=== PATIENT | female | born 2000 | race Caucasian/White ===

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

== ENCOUNTER → 2021-07-07 13:17 | Outpatient (CLI) | payer BC, SELFPAY | PROVIDERS: PCP Registered Nurse Diabetes Educator; Visit Provider Nurse Practitioner Family | DX: R30.0 Dysuria (principal) | CPT/HCPCS: 87077; 87086; 87186 ==

== ENCOUNTER → 2021-07-13 15:49 | Outpatient (CLI) | payer BC, SELFPAY | PROVIDERS: PCP Registered Nurse Diabetes Educator; Visit Provider Nurse Practitioner Critical Care Medicine | DX: R30.0 Dysuria (principal) | CPT/HCPCS: 87086 ==